=== PATIENT | male | born 1965 | race Two or more races ===

== ENCOUNTER 2021-01-22 07:38 | Emergency (ER) | payer OTHER ==
[~2021-01-22] VITALS: Ht 172.7 cm; Wt 90.7 kg
[2021-01-22] MEDS ORDERED: DIOVAN40 MG PO (07:54)
[2021-01-22] MEDS ORDERED: NORFLEX100MG PO (17:02)
[2021-01-22] MEDS ORDERED: KETO10TA2 PO (17:02)
== END 2021-01-22 17:18 | disposition home or self-care (01) ==
LOC: ER 07:38
DX: S20.219A Contusion of unspecified front wall of thorax, initial encounter (principal); S70.01XA Contusion of right hip, initial encounter; S30.0XXA Contusion of lower back and pelvis, initial encounter; S29.8XXA Other specified injuries of thorax, initial encounter; W19.XXXA Unspecified fall, initial encounter; Y93.89 Activity, other specified; Y92.814 Boat as the place of occurrence of the external cause; Y99.8 Other external cause status; M54.5 Low back pain

== ENCOUNTER 2022-05-07 09:22 | Emergency (ER) | payer OTHER ==
[~2022-05-07] VITALS: Ht 170.2 cm; Wt 100.7 kg
[~2022-05-07 09:22] MED LIST: DIOVAN40 MG PO; KETO10TA2 PO; NORFLEX100MG PO
== END 2022-05-07 12:55 | disposition home or self-care (01) ==
LOC: ER 09:22
DX: J45.909 Unspecified asthma, uncomplicated (principal); Z20.822 Contact with and (suspected) exposure to COVID-19